=== PATIENT | male | born 1965 | race Caucasian/White ===

== ENCOUNTER 2016-09-19 23:42 | Emergency (ER) | payer MEDICARE, MEDICAID ==
[2016-09-19] MEDS ORDERED: Sodium Chloride 0.9% 10 ML Syringe FLUSH PRN (23:43)
[2016-09-19] MEDS ORDERED: methylPREDNISolone Sodium Succinate 125 MG/2 ML SDV IVPUSH ONE (23:45)
[2016-09-19] MEDS ORDERED: Albuterol/Ipratropium 3.0-0.5 MG/3 ML Neb Soln NEB ONE (23:45)
[2016-09-20] MEDS: LORazepam 2 MG/ML MDV IVPUSH ONE ×2 (00:34→00:46)
[2016-09-20] MEDS ORDERED: Albuterol 8 GM Inhaler INH ONE (00:43)
[2016-09-20] MEDS ORDERED: predniSONE 20 MG Tab PO ONE (00:43)
[2016-09-20 01:17] VITALS: BP 126/73
--- NOTE | 2016-09-20 04:36 | ER ---
DATE SEEN: 09/19/2016 TIME SEEN: 0000 hours. CHIEF COMPLAINT: Difficulty breathing. HISTORY OF PRESENT ILLNESS: This is a 51-year-old male who came in with wheezing and difficulty breathing that started tonight. He has been using Advair Diskus with no improvement. He has been recently diagnosed with COPD. He denies any chest pain, fever, chills. SOCIAL HISTORY: He is a smoker. Also chews tobacco. CURRENT MEDICATIONS: 1. Advair Diskus. 2. Prednisone. REVIEW OF SYSTEMS: No nausea, vomiting, or fever. Has a mild cough. PHYSICAL EXAMINATION: GENERAL: He has mild respiratory distress. VITAL SIGNS: Blood pressure is normal, temperature 97.5, oxygenation 98% on room air. EARS, NOSE, AND THROAT: Negative. HEAD: Normal size. CHEST: Diminished breath sounds bilaterally. EXTREMITIES: No edema. LABORATORY DATA: Normal white cell count, BNP, troponin. EKG: Normal sinus rhythm. Chest x-ray was unremarkable, except signs of fibrosis and bird chest. FINAL IMPRESSION: Chronic obstructive pulmonary disease exacerbation, mild-to- moderate. PLAN: Solu-Medrol 125 mg IV, DuoNeb x1 dose. The patient improved. I discharged him home on ProAir 1 to 2 puffs every 4 hours and prednisone 20 mg b.i.d. Recommend follow up on Friday. Return to the ED with any worsening symptoms. Discussed smoking cessation. /[id number] JOSELIN/EDUARDO
--- NOTE | 2016-09-20 12:27 | CR ---
INDICATION: Chest pain. CHEST: Portable AP upright views of the chest x2 revealed an appearance of hyperaeration with slightly flattened diaphragm leaves suggesting obstructive airway disease - probable COPD. A definite active infiltrate or effusion was not identified. The heart appeared normal in size and shape. Mediastinum was unremarkable. IMPRESSION: 1. No acute process. 2. COPD. MTDD
== END 2016-09-20 00:55 | disposition home or self-care (01) ==
LOC: FB.ED 23:42
DX: J44.1 Chronic obstructive pulmonary disease with (acute) exacerbation (principal); F17.220 Nicotine dependence, chewing tobacco, uncomplicated
CPT/HCPCS: 36415; 71010; 80053; 83880; 84484; 85025; 93005; 94640; 96374; 99285; A9270; J2930; J7050; J7620; 99283; J2060

== ENCOUNTER 2019-12-17 20:01 | Emergency (ER) | payer MEDICAID, MEDICARE ==
[2019-12-17 20:20] VITALS: BP 121/83; PULSE 91
[2019-12-17] MEDS ORDERED: hydrOXYzine HCl 50 MG/ML SDV IM ONE (20:31)
[2019-12-17] MEDS ORDERED: Ketorolac 60 MG/2 ML SDV IM ONE (20:32)
--- NOTE | 2019-12-17 20:37 | EDM.PDOC ---
ED HPI GENERAL MEDICAL PROBLEM - General Chief Complaint: Headache Stated Complaint: HEADACHE-LEFT SIDE Time Seen by Provider: 12/17/19 20:33 Source of Information: Reports: Patient History Limitations: Reports: No Limitations - History of Present Illness INITIAL COMMENTS - FREE TEXT/NARRATIVE: Colton is a 54 yo male complaining of a headache. Left sided,insidious onset. Moderate to severe. Advil has afforded some relief.Had a similar headache a few years ago. He is otherwise healthy with the exception of COPD. Does not endorse nausea,photosensitively or fever. left head Pain Score (Numeric/FACES): 6 - Related Data Allergies Allergy/AdvReac Type Severity Reaction Status Date / Time No Known Allergies Allergy Verified 09/19/16 23:54 Home Meds: Home Meds Fluticasone Propion/Salmeterol [Advair 250-50 Diskus] 2 puff PO BID 09/19/16 [History] Past Medical History Respiratory History: Reports: Asthma, COPD Social & Family History - Family History Family Medical History: Unobtainable - Tobacco Use Smoking Status *Q: Current Every Day Smoker Years of Tobacco use: 45 Packs/Tins Daily: 0.5 - Caffeine Use Caffeine Use: Reports: Coffee Caffeine Use Comment: pt refused to answer - Recreational Drug Use Recreational Drug Use: No ED ROS GENERAL - Review of Systems Review Of Systems: Comprehensive ROS is negative, except as noted in HPI. - Physical Exam Exam: See Below Exam Limited By: No Limitations General Appearance: Alert, WD/WN, No Apparent Distress Nose: Normal Inspection Throat/Mouth: Normal Inspection Head Exam: Atraumatic Neck: Normal Inspection Respiratory/Chest: No Respiratory Distress Cardiovascular: Normal Peripheral Pulses GI/Abdominal: Soft Neuro Exam (Abbreviated): Alert, Oriented Extremities: Normal Inspection Psychiatric: Normal Affect Skin Exam: Warm Course - Vital Signs Last Recorded V/S: Last Vital Signs Temp 98.1 F 12/17/19 20:19 Pulse 91 12/17/19 20:19 Resp 14 12/17/19 20:19 BP 121/83 12/17/19 20:19 Pulse Ox 97 12/17/19 20:19 - Orders/Labs/Meds Meds: Medications Discontinued Medications Generic Name Dose Route Start Last Admin Trade Name Freq PRN Reason Stop Dose Admin Hydroxyzine HCl 50 mg 12/17/19 20:31 12/17/19 20:59 Vistaril IM 12/17/19 20:32 50 mg ONETIME ONE Administration Ketorolac Tromethamine 60 mg 12/17/19 20:32 12/17/19 21:00 Toradol IM 12/17/19 20:33 60 mg ONETIME ONE Administration Departure - Departure Time of Disposition: 20:37 Disposition: Home, Self-Care 01 Clinical Impression: Migraine, Head ache - Discharge Information Instructions: Ketorolac injection, Hydroxyzine injection, Tension Headache, Adult Referrals: Kami Almonte [employer] [Primary Care Provider] - Forms: ED Department Discharge Care Plan Goals: Follow up with your doctor as needed. Stay hydrated. Take tylenol and ibuprofen as needed. Sepsis Event Note (ED) - Evaluation Sepsis Screening Result: No Definite Risk - Focused Exam Vital Signs: Vital Signs Temp Pulse Resp BP Pulse Ox 12/17/19 20:19 98.1 F 91 14 121/83 97 - Problem List & Annotations (1) Head ache SNOMED Code(s): 84894585 Code(s): R51 - HEADACHE Status: Acute Qualifiers: Headache type: tension-type - Problem List Review Problem List Initiated/Reviewed/Updated: Yes - Assessment/Plan Plan: He improved on Vistaril and Toradol IM.DC home with strict follow up
== END 2019-12-17 21:39 | disposition home or self-care (01) ==
LOC: FB.ED 20:01
DX: G43.909 Migraine, unspecified, not intractable, without status migrainosus (principal); J44.9 Chronic obstructive pulmonary disease, unspecified; F17.210 Nicotine dependence, cigarettes, uncomplicated
CPT/HCPCS: 96372; 99282; 99283; J1885; J3410

== ENCOUNTER 2020-01-02 21:14 | Emergency (ER) | payer MEDICARE ==
[2020-01-02] MEDS: Ketorolac 60 MG/2 ML SDV IM ONE (22:09)
--- NOTE | 2020-01-02 22:11 | EDM.PDOC ---
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 had been given sumatriptan 100 mg, 9 tabs total, has used 6 tabs, gets rid of SANTOS but tends to cause nausea head CT on 12-29-19 showed a an area of encephalomalacia at the L frontal lobe, pt is now scheduled for an MRI in 5d and will see Kami Almonte the week after the MRI head CT was reviewed with pt altho it was difficulty to appreciate the area identified by the radiologist pt reports his mother from a CVA and his GM from an aneurysm SANTOS is not severe he had taken no meds at home today L sided headache Pain Score (Numeric/FACES): 6 - Related Data Allergies Allergy/AdvReac Type Severity Reaction Status Date / Time No Known Allergies Allergy Verified 01/02/20 21:20 Home Meds: Home Meds Rosuvastatin Calcium 10 mg BEDTIME 01/02/20 [History] Umeclidinium Brm/Vilanterol Tr [Anoro Ellipta 62.5-25 MCG] 1 puff BID 01/02/20 [History] Past Medical History Cardiovascular History: Reports: High Cholesterol Respiratory History: Reports: Asthma, COPD Musculoskeletal History: Reports: Fracture Other Musculoskeletal History: hx fx jaw Psychiatric History: Reports: Addiction Other Psychiatric History: hx ETOH abuse - Infectious Disease History Infectious Disease History: Reports: Chicken Pox - Past Surgical History HEENT Surgical History: Reports: Other (See Below) Other HEENT Surgeries/Procedures: jaw surgery Musculoskeletal Surgical History: Reports: None Social & Family History - Family History Family Medical History: Unobtainable - Tobacco Use Smoking Status *Q: Current Every Day Smoker Years of Tobacco use: 45 Packs/Tins Daily: 0.5 - Caffeine Use Caffeine Use: Reports: Coffee, Soda Caffeine Use Comment: pt refused to answer - Recreational Drug Use Recreational Drug Use: No ED ROS GENERAL - Review of Systems Review Of Systems: See Below Constitutional: Reports: No Symptoms HEENT: Reports: No Symptoms Respiratory: Reports: No Symptoms Cardiovascular: Reports: No Symptoms Endocrine: Reports: No Symptoms GI/Abdominal: Reports: No Symptoms : Reports: No Symptoms Musculoskeletal: Reports: No Symptoms Skin: Reports: No Symptoms Neurological: Reports: Headache Psychiatric: Reports: No Symptoms Hematologic/Lymphatic: Reports: No Symptoms Immunologic: Reports: No Symptoms - Physical Exam Exam: See Below Exam Limited By: No Limitations General Appearance: Alert, WD/WN, No Apparent Distress Ears: Hearing Grossly Normal Nose: Normal Inspection Throat/Mouth: Normal Inspection, Normal Lips, Normal Voice, No Airway Compromise Head Exam: Atraumatic, Normocephalic Neck: Normal Inspection, Supple, Non-Tender, Full Range of Motion. No: Lymphadenopathy (R), Lymphadenopathy (L) Respiratory/Chest: No Respiratory Distress Cardiovascular: Regular Rate, Rhythm Extremities: Normal Inspection, Normal Range of Motion Psychiatric: Normal Affect, Normal Mood Skin Exam: Warm, Dry, Intact, Normal Color, No Rash Course - Vital Signs Last Recorded V/S: Last Vital Signs Temp 36.4 C 01/02/20 21:15 Pulse 80 01/02/20 21:15 Resp 20 01/02/20 21:15 BP 121/79 01/02/20 21:15 Pulse Ox 96 01/02/20 21:15 - Orders/Labs/Meds Orders: Active Orders 24 hr Category Date Time Status Ketorolac [Toradol] Med 01/02/20 22:05 Once 60 mg IM ONETIME ONE Departure - Departure Time of Disposition: 22:06 Disposition: Home, Self-Care 01 Condition: Good Clinical Impression: Tension-type headache - Discharge Information *PRESCRIPTION DRUG MONITORING PROGRAM REVIEWED*: Not Applicable *COPY OF PRESCRIPTION DRUG MONITORING REPORT IN PATIENT JEYSON: Not Applicable Instructions: Tension Headache, Adult, Steps to Quit Smoking Referrals: Kami Almonte NP [Primary Care Provider] - Additional Instructions: For headache, take ibuprofen 200 mg 4 tabs, may repeat in 8 hours as needed. Since the prescription sumatriptan has caused side effects, you may want to use the ibuprofen, which is better tolerated. Complete the MRI on Friday, as scheduled. Give some thought to stopping smoking, as this can affect the circulation. See Kami Almonte after completing the MRI. Sepsis Event Note (ED) - Evaluation Sepsis Screening Result: No Definite Risk - Focused Exam Vital Signs: Vital Signs Temp Pulse Resp BP Pulse Ox 01/02/20 21:15 36.4 C 80 20 121/79 96 - My Orders Last 24 Hours: My Active Orders 01/02/20 22:05 Ketorolac [Toradol] 60 mg IM ONETIME ONE - Assessment/Plan Last 24 Hours: My Active Orders 01/02/20 22:05 Ketorolac [Toradol] 60 mg IM ONETIME ONE
[2020-01-02 22:20] VITALS: BP 126/77; PULSE 69
== END 2020-01-02 22:19 | disposition home or self-care (01) ==
LOC: FB.ED 21:14
DX: G44.209 Tension-type headache, unspecified, not intractable (principal); J44.9 Chronic obstructive pulmonary disease, unspecified; E78.00 Pure hypercholesterolemia, unspecified; F17.210 Nicotine dependence, cigarettes, uncomplicated
CPT/HCPCS: 96372; 99283; J1885

== ENCOUNTER 2024-08-05 02:01 | Emergency (ER) | payer MEDICARE ==
[2024-08-05 04:05] VITALS: BP 108/69; PULSE 89
== END 2024-08-05 03:45 | disposition home or self-care (01) ==
LOC: FB.ED 02:01
DX: S00.83XA Contusion of other part of head, initial encounter (principal); E78.00 Pure hypercholesterolemia, unspecified; J44.9 Chronic obstructive pulmonary disease, unspecified; Z79.899 Other long term (current) drug therapy; Y04.8XXA Assault by other bodily force, initial encounter
CPT/HCPCS: 70450; 70486; 99283; 99284